=== PATIENT | female | born 1955 | race Caucasian/White ===

== ENCOUNTER 2017-12-18 11:03 | Day surgery (SDC) | payer OTHER ==
[2017-12-18] MEDS ORDERED: LIDOCAINE 100 MG SYRINGE (12:01)
[2017-12-18] MEDS ORDERED: PROPOFOL 40 ML (12:01)
[2017-12-18] MEDS ORDERED: FENTAnyl 50 MCG/ML VIAL (12:02)
== END 2017-12-18 15:17 | disposition home or self-care (01) ==
LOC: GIL 11:03
DX: Z12.11 Encounter for screening for malignant neoplasm of colon (principal); K57.90 Diverticulosis of intestine, part unspecified, without perforation or abscess without bleeding; K64.4 Residual hemorrhoidal skin tags; I10 Essential (primary) hypertension; E66.01 Morbid (severe) obesity due to excess calories; Z68.42 Body mass index [BMI] 45.0-49.9, adult
CPT/HCPCS: 45378